=== PATIENT | male | born 1985 | race Caucasian/White ===

== ENCOUNTER 2022-01-25 11:53 | Emergency (ER) | payer BC ==
[2022-01-25 12:24] VITALS: BP 132/71; PULSE 55
[2022-01-25 12:46] LABS: ESTIMATED GFR 112 mL/min (>60)
== END 2022-01-25 13:18 | disposition home or self-care (01) ==
LOC: FB.ED 11:53
DX: R07.89 Other chest pain (principal); Z79.899 Other long term (current) drug therapy
CPT/HCPCS: 36415; 71046; 80053; 84484; 85025; 93005; 99285